=== PATIENT | male | born 1975 | race Caucasian/White ===

== ENCOUNTER → 2017-09-29 | Outpatient (CLI) | payer BC ==
[~2017-09-29] MED LIST: ALBUAER2 INH; CARV3.122 PO; DOXY100C76 PO; ESCI1TAB6 PO; GUAI100S6 PO
--- NOTE | 2017-09-29 14:27 | MAMMOGRAPHY REPORT ---
MALE BILATERAL DIGITAL DIAGNOSTIC MAMMOGRAM WITH CAD AND TARGETED RIGHT ULTRASOUND: 09/29/2017 CLINICAL HISTORY: The patient reports a palpable lump in his right breast which he noticed 2.5 weeks ago. Since that time, the lump feels less prominent and smaller to the patient. He denies any assoc iated pain, skin erythema, nipple discharge, or other complaints. Family history of breast cancer in his sister. TECHNIQUE: Current study was also evaluated with a Computer Aided Detection (CAD) system. Bilateral CC and MLO views were obtained. COMPARISON: No prior exams were available for comparison. BREAST COMPOSITION: The tissue of both breasts is predominantly fatty. FINDINGS: A triangle marker badillo the site of the palpable lump in the right upper outer anterior br east. No suspicious masses or other suspicious mammographic abnormalities are noted in this region. The remainder of both breasts are negative, without suspicious masses, calcifications, or areas of a rchitectural distortion noted. Targeted ultrasound was performed of the area of the palpable lump pointed out by the patient, in the right 10:00 subareolar/periareolar breast. At the site of the palpable lump there is a subdermal jackson perficial hyperechoic region, which is ill-defined and therefore difficult to measure but measures ap proximately 9 x 16 x 4 mm. The patient denies any known trauma to the region. Findings are probably benign given the hyperechoic appearance on ultrasound and given that the lump feels smaller to the p atient, and could represent posttraumatic/post inflammatory changes or possibly minimal gynecomastia although this is not a classic appearance on imaging. No suspicious solid masses are evident. IMPRESSION: ACR-BI-RADS CATEGORY 3: PROBABLY BENIGN, TARGETED ULTRASOUND ACR-BI-RADS CATEGORY 3: PRO BABLY BENIGN Focal ill-defined hyperechoic 16 mm region on ultrasound at the site of the palpable lump in the righ t 10:00 periareolar/subareolar breast. The finding is probably benign given the hyperechoic appearan ce on ultrasound and given that the lump feels smaller to the patient. Considerations include posttr aumatic or postinflammatory changes or possibly gynecomastia although this does not have a classic ap pearance on imaging. Recommend follow-up targeted ultrasound of the right breast in 4 weeks to reeva luate. Additionally, recommend clinical follow-up and the patient should return sooner if the lump i ncreases. The patient has been verbally notified of the results. Approximately 10% of breast cancers are not detected with mammography. A negative mammographic report should not delay biopsy if a clinically suggestive mass is present. Eliz Patel M.D. ah/:09/29/2017 11:36:01 [employer]: Lizzie RINCON(Marshal)(Og), [facility] letter sent: Follow Up Recommended 3 BI-RADS Code: ACR-BI-RADS Category 3: Probably Benign Ultrasound BI-RADS: ACR-BI-RADS Category 3: Pr obably Benign
== END | disposition home or self-care (01) ==
LOC: C.MAMM 09:57
PROVIDERS: ATTEND Nurse Practitioner Family
DX: N63.10 Unspecified lump in the right breast, unspecified quadrant (principal)